=== PATIENT | female | born 1970 | race Caucasian/White ===

== ENCOUNTER → 2017-04-01 | Day surgery (SDC) | payer OTHER ==
[2017-04-01 07:44] LABS: HCT 39.5 % (37.0-47.0); HGB 13.1 g/dl (12.5-16.0); MCHC 33.2 g/dL (32.0-36.0); MCV 87.6 fL (78.0-100.0); MPV 8.9 fL (6.0-9.5); RBC 4.51 M/uL (4.20-5.40); RDW 13.8 % (11.5-14.0); WBC 7.1 K/uL (4.0-10.5)
== END | disposition home or self-care (01) ==
LOC: FAS 07:14
PROVIDERS: Obstetrics & Gynecology
DX: N83.201 Unspecified ovarian cyst, right side (principal); N83.8 Other noninflammatory disorders of ovary, fallopian tube and broad ligament; Z90.710 Acquired absence of both cervix and uterus; F41.9 Anxiety disorder, unspecified; E78.00 Pure hypercholesterolemia, unspecified; M32.9 Systemic lupus erythematosus, unspecified; M19.90 Unspecified osteoarthritis, unspecified site; F32.9 Major depressive disorder, single episode, unspecified; K58.9 Irritable bowel syndrome, unspecified; K21.9 Gastro-esophageal reflux disease without esophagitis; R06.83 Snoring; E66.9 Obesity, unspecified; Z68.36 Body mass index [BMI] 36.0-36.9, adult; Z80.3 Family history of malignant neoplasm of breast; Z87.11 Personal history of peptic ulcer disease; Z86.010 Personal history of colon polyps; F17.210 Nicotine dependence, cigarettes, uncomplicated
CPT/HCPCS: 36415; 71010; 88305; 93005; J2704; J2710; J3010